=== PATIENT | female | born 1980 ===

== ENCOUNTER 2023-05-12 11:15 | Inpatient (IN) | payer OTHER ==
[~2023-05-12] VITALS: Ht 157.5 cm; Wt 53.5 kg
[2023-05-19 07:07] LABS: HEMATOCRIT 35.1 % (36.0-45.00); HEMOGLOBIN 11.5 g/dL (12.0-15.00); MEAN CORPUSCULAR HEMOGLOBIN 31.2 pg (27.00-32.0); MEAN CORPUSCULAR HGB CONC 32.9 g/dl (32.0-36.0); PLATELET COUNT 211 K/uL (150-450); RED BLOOD COUNT 3.69 M/uL (4.00-6.00)
== END 2023-05-19 10:11 | disposition home or self-care (01) | DRG 741 ==
LOC: OB/GYN 05-18 11:15 → O/R 05-18 12:05 → OB/GYN 05-18 14:30
PROVIDERS: ADMIT Specialist; ATTEND Specialist
PROC: 0UT94ZZ Resection of Uterus, Percutaneous Endoscopic Approach (ICD-10-PCS; principal; 2023-05-18 14:30)
DX: D06.7 Carcinoma in situ of other parts of cervix (principal); N72 Inflammatory disease of cervix uteri; Z20.822 Contact with and (suspected) exposure to COVID-19